=== PATIENT | male | born 1965 | race Caucasian/White ===

== ENCOUNTER 2017-05-22 20:41 | Inpatient (IN) | payer OTHER ==
[~2017-05-22] VITALS: Ht 188 cm; Wt 81.1 kg
--- NOTE | 2017-05-22 20:44 | ED.REPORT ---
HPI-Chest Pain 40 and Over Date of Service May 22, 2017 ED Provider: Frank Garcia MD Patient is a 52 year old male who presents to the ED via EMS complaining of chest pain onset 24 hours ago. Associated symptoms include pain that radiates into his right arm. Prior to arrival patient was evaluated at [facility] and given 324 mg of ASA and 100 milligrams of Fentanyl, which took his chest pain from a 5/10 down to a 2/10. He denies any history of coronary artery disease or prior NM. History is limited due to acuity of situation. Nursing Notes Stated Complaint: STEMI Nursing Notes Reviewed: Yes Allergies: Coded Allergies: erythromycin base (Verified Allergy, Unknown, 05/22/17) General Time Seen by MD: 20:44 Chief Complaint Chest pain Hx Obtained From: Patient Arrived By: Ambulance Sudden in Onset?: Yes Onset Occurred: Yesterday Symptom Duration: Since onset Location: : Substernal Quality: Heaviness, Painful Radiation: : Arm right Severity: Current: Moderate Past Medical History Past Medical History Reports: Asthma Smoking History Current Every Day Smoker Ambulatory Status Independent Review of Systems Constitutional: Denies: Chills, Fever Respiratory: Denies: Non-productive cough, Shortness of breath Cardiovascular: Reports: Chest pain GI: Denies: Abdominal pain Musculoskeletal: Reports: Extremity pain (right arm) Skin: Denies Diaphoresis, Denies Itching, Denies Rash Neurologic: Denies: Numbness, Weakness Complete sys rev & neg: except as marked. Physical Exam Initial Vital Signs Vital Signs (First) Date Time Temp Pulse Resp B/P Pulse Ox O2 Delivery O2 Flow Rate FiO2 05/22/17 20:53 135 25 146/105 94 Room Air Initial VS: Reviewed General/Constitutional: Awake, Alert, No acute distress Respiratory / Chest: Atraumatic, Breath sounds NL, Breath sounds = bilat, No respiratory distress Cardiovascular: Regular rhythm, Heart sounds NL, No gallop, No murmurs, No rubs Heart Rate / Rhythm: Positive: Tachycardia Abdomen: Atraumatic, Soft, Non-tender, No distention, No palpable mass Lower Extremity / Pelvis / MS: Atraumatic, No swelling Skin: Atraumatic, Color NL, No rash, Warm, Dry Neurologic: Oriented X3, Speech NL Psychiatric: Affect NL, Mood NL Head / Eyes: Atraumatic, Normocephalic, PERRL, EOMI Upper Extremity / MS: Atraumatic, Full range of motion good radial pulses bilaterally Interpretation & Diagnostics ECG Interpretation ECG Interpretation: sinus tachycardia, rate [address] elevation in anterolateral lead with mild ST elevation in inferior leads Interpreted by: ED physician X-Ray Chest Interpretation Chest Xray Interpretation: IMPRESSION: No acute cardiopulmonary findings. Dictated by: Nydia Kwong M.D. on 05/22/2017 at 21:06 Approved by: Nydia Kwong M.D. on 05/22/2017 at 21:07 View: Portable, 1 view Interpretation / Wet Read by: Interpret - Radiologist Re-Eval/Medical Decision Med Decision/Clinical Course Patient is a 52 year old male who presents to the ED via EMS complaining of chest pain onset 24 hours ago. Associated symptoms include pain that radiates into his right arm. Prior to arrival patient was evaluated at [facility] and given 324 mg of ASA and 100 milligrams of Fentanyl, which took his chest pain from a 5/10 down to a 2/10. He denies any history of coronary artery disease or prior NM. History is limited due to acuity of situation. Upon arrival IV access was established and patient was placed on continuous cardiac monitoring and pulse oximetry. Prior to arrival patient was discussed with STEMI team and STEMI code was activated laborer bituminous paving prepared. Pre arrival EKG demonstrated significant ST elevation in leads V3-V6, as well as ST elevation in 2,3 and aVF. Repeat EKG upon arrival demonstrated ongoing sinus tachycardia, 131bpm significant ST elevation in the anterolateral leads with mild ST elevation in inferior leads Chest X-ray: IMPRESSION: No acute cardiopulmonary findings. Laboratory studies including CBC, CMP and troponin were ordered upon arrival however were pending at the time of writing this note. Patient was hemodynamically stable upon arrival and his pain was treated with IV morphine. Heparin bolus and infusion was ordered lab was immediately ready to accept the patient and therefore this was not started while in the emergency department. Patient provides no history suggestive that his pain is related to aortic dissection and there is no widened mediastinum on chest x-ray. Presentation is not pleuritic in nature and given EKG findings my suspicion for pulmonary embolism is relatively low. The examination was taken to It Senior Analyst in stable condition. Time of Eval: 21:02 Re-Evaluation/Progress Note: Patient is transported to the laborer bituminous paving Consultation : Consulted With: Finisher Cold Rolling: Requested laborer bituminous paving Counseled Regarding: Diagnosis, Lab results, Need for admission Discharge & Departure Primary Impression: STEMI (ST elevation myocardial infarction) Involved coronary artery: unspecified coronary artery Qualified Code: I21.3 - ST elevation (STEMI) myocardial infarction of unspecified site Additional Impressions: Chest pain Chest pain type: unspecified Qualified Code: R07.9 - Chest pain, unspecified Tachycardia Disposition: ADMITTED TO HOSPITAL Discharge Condition All VS Reviewed: Yes Condition: Stable Crit Care Except Billable Proc Time Spent: 30-74 minutes Services Performed: Patient management by me, Time spent at bedside, Reviewing test results, Reviewing imaging, Discussing patient care, Documentation in record, Time with fam/surrogate Critical Care Notes: Total 45 minutes including pre-arrival preparations, activation of STEMI, discussion with specialists, documentation. Melva Attestation Portions of this note were transcribed by Karishma Fagan. I, Dr. Garcia personally performed the history, physical exam and medical decision-making; I reviewed and confirmed the accuracy of the information in the transcribed note. Signed by: Melva Daniels, 05/22/17 Frank Garcia MD May 22, 2017 20:44 Sharon Fagan May 22, 2017 20:59
[2017-05-22] MEDS ORDERED: Heparin 5,000 Unit/mL Inj IVPUSH ONE (20:45)
[2017-05-22] MEDS ORDERED: Heparin 25K Unit/500mL 0.45 NS 25,000 UNIT in IV Premix 1 EACH IV ONE (20:45)
[2017-05-22] MEDS ORDERED: NitroPRUSSIDE 25,000 mCg/mL 2 mL Inj IV ONE (20:48)
[2017-05-22] MEDS ORDERED: Heparin 1,000 Units/500 mL NS Premix IV ONE (20:48)
[2017-05-22] MEDS ORDERED: Nitroglycerin 50,000 mcg/250 mL D5W Premix IV ONE (20:48)
[2017-05-22] MEDS ORDERED: Heparin 10,000 Unit/1,000 mL NS Premix IV ONE (20:48)
[2017-05-22] MEDS ORDERED: Dextrose 5% 250 ML IV ONE (20:48)
[2017-05-22] MEDS ORDERED: Heparin 1,000 Unit/mL 10 mL Inj ONE (20:48)
[2017-05-22 20:53] VITALS: BP 146/105; PULSE 135; RESP 25; O2SAT 94
[2017-05-22 21:08] VITALS: BP 146/105; PULSE 135; RESP 25; O2SAT 94
--- NOTE | 2017-05-22 21:08 | DRSVH ---
PROCEDURE: X-RAY CHEST ONE VIEW, PORTABLE ([id number]) INDICATIONS: chest pain TECHNIQUE: One view of the chest was acquired. COMPARISON: None. FINDINGS: Surgical changes and devices: None. Lungs and pleura: No pleural effusions or pneumothorax. Lungs are clear. Mediastinum: Mediastinal contours appear normal. Heart size is normal. Bones and chest wall: No suspicious bony lesions. Overlying soft tissues appear unremarkable. IMPRESSION: No acute cardiopulmonary findings. Dictated by: Nydia Kwong M.D. on 05/22/2017 at 21:06 Approved by: Nydia Kwong M.D. on 05/22/2017 at 21:07
[2017-05-22] MEDS ORDERED: fentaNYL-PF 50 mCg/mL 2 mL Inj ONE (21:17)
[2017-05-22] MEDS ORDERED: MeTOProlol 1 mg/mL 5 mL Inj ONE ×2 (21:27→21:37)
--- NOTE | 2017-05-22 22:32 | CONS ---
[address] [address] CONSULTATION REPORT PATIENT: PAULINO SPARKS I : 1965 MR#: [id number] ADMIT: 05/22/2017 JOB ID: [id number] DATE OF SERVICE: 05/22/2017 CHIEF COMPLAINT: Chest pain. HISTORY: This patient was brought from [facility]. He has been having chest discomfort since Monday afternoon. He dismissed as musculoskeletal pain. It did not get any better. Went to [facility]. An EKG done there showed anterior ST segment elevation. The patient was transferred to [facility]. By the time he got to [facility], his pain had greatly subsided. The patient denies any associated nausea, vomiting. No associated autonomic symptoms. He describes it as a dull discomfort in his anterior chest. He stated that it felt like a muscle ache. PAST MEDICAL HISTORY: Asthma and hay fever. ALLERGIES: ERYTHROMYCIN. MEDICATIONS AT HOME: Inhalers for his asthma. PERSONAL HISTORY: He is a smoker. Denies any alcohol or drug abuse. FAMILY HISTORY: His father in his 30s from an [facility]. His siblings are all healthy and alive. REVIEW OF SYSTEMS: Comprehensive review of systems was done. Pertinent negatives are no strokes, no GI or bleeding. No upcoming surgeries. PHYSICAL EXAMINATION: Mildly distressed middle-aged man. Neck is supple. No JVD. Chest: Heart S1-S2 regular and tachycardic. No gallops appreciated. Abdomen is soft. Extremities: Negative for CCE, 2+ distal pulses. HOUSEKEEPING/LAUNDRY SUPERVISOR: Alert and oriented. EKG consistent with an anterior infarct with Q-waves throughout the precordium and persistent ST-segment elevation. ASSESSMENT AND PLAN: In view of the patient's ongoing chest discomfort and persistent ST-segment elevation, we decided to take him to the poultry farm laborer. Angiographic findings are reported elsewhere. Briefly, he does not have any significant fixed epicardial coronary artery disease. 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 I would withhold beta-blockers for now. I am going to start him on nitroglycerin drip.
[2017-05-22] MEDS ORDERED: 0.9% Sodium Chloride 1,000 ML IV SCH (22:34)
[2017-05-22] MEDS ORDERED: Polyethylene Glycol (PEG) 17 Gm Powder PO PRN (22:35)
[2017-05-22] MEDS ORDERED: Nitroglycerin 50 mg/250 mL D5W 50,000 MCG in IV Premix 1 EACH IV SCH (22:35)
[2017-05-22] MEDS ORDERED: Alum-Mag Hydrox-Simeth 30 mL Suspension PO PRN (22:35)
[2017-05-22] MEDS ORDERED: Ondansetron 2 mg/mL 2 mL Inj IVPUSH PRN ×2 (22:35→23:00)
[2017-05-22 22:45] VITALS: BP 115/78; PULSE 105; RESP 21; O2SAT 90
[2017-05-22] MEDS ORDERED: 0.9% Sodium Chloride 250 ML BOLUS IV PRN (23:00)
[2017-05-22] MEDS ORDERED: Atropine 1 mg/10 mL (Code) Syringe IVPUSH PRN (23:00)
[2017-05-22] MEDS ORDERED: Sodium Chloride LOK Flush 10 mL Syringe IVFLUSH PRN (23:00)
[2017-05-22] MEDS ORDERED: 0.9% Sodium Chloride 400 ML (4 HRS) IV ONE (23:00)
[2017-05-22] MEDS ORDERED: Albuterol 2.5 mg/3 mL Inhalation Solution NEB PRN (23:45)
--- NOTE | 2017-05-22 23:53 | PCM.HPMED ---
Subjective Date of Service May 22, 2017 Primary Provider: Admitting Physician: Abel Monaco MD Primary Care Physician: Brandy Attending Physician: Abel Monaco MD Chief Complaint: Chest pain History of Present Illness: Romeo Timmons is a 52-year-old man with past medical history significant for 35- pack-year smoking history and a father with first [place] at age 30 who presents with 24 hours of chest pain. Patient states pain started Monday after reaching for a box on a high shelf. The pain was diffuse throughout his body including his chest bilateral arms and legs and he described the pain as sharp and constant. Pain slightly improved with aspirin and ibuprofen. No associated nausea, vomiting, shortness of breath, diaphoresis, lightheadedness, headache, vision changes, or palpitations. Pain continued throughout the night and intensified today more locally in his left lower chest wall. He states it feels like he throughout a few of his ribs and continues throughout her conversation to attribute his pain to a musculoskeletal cause. Due to the intensified pain patient presented to [facility] where an EKG revealed an anterior ST segment elevation. Patient was subsequently transferred to [facility]. During his transfer he received aspirin in the 100 mg of fentanyl which significantly improved his pain that he initially rated as a 10 out of 10 to a 4 out of 10. No prior episodes of chest pain or similar symptoms. No history of heart disease or prior echocardiogram. Of note the patient drinks approximately 2 L of coffee a day. Initial vitals on presentation to [facility] ED were pulse 135, respiratory rate 25, blood pressure 146/105, saturating 94% on room air. EKG at our facility redemonstrated an anterior infarct with Q waves throughout the precordium and persistent ST segment elevation. Patient was taken to the confectionery laboratory manager by Dr. Monaco which revealed no significant fixed epicardial coronary artery disease but did show myocardial bridge in the LAD. Dr. Monaco's suspicion is that he had a significant spasm that due to the myocardial bridge caused his large anterior myocardial infarction. Review of Systems: Comprehensive review of systems was conducted with the patient and found to be negative except as noted above in HPI. Allergies Coded Allergies: erythromycin base (Verified Allergy, Unknown, 05/22/17) Home Medications Rescue inhaler - likely pro-air PMH Asthma Tobacco use disorder Surgical History Surgery for hydrocephalus as an infant Family History Father with first WA at age 30 now also with hypertension. Mother is healthy. Sister is healthy. 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 External ears without defect. Pupils equal, round, and reactive to light and accommodation. Anicteric sclerae, moist conjunctivae, and no lid lag. Moist oral mucosa. Neck: Supple with full range of motion. No jugular venous distension. Well- healed scar on right lateral neck from hydrocephalus surgery. No lymphadenopathy or thyromegaly. Cardiovascular: Tachycardic with regular rhythm no murmurs, rubs, or gallops appreciated Pulmonary: Clear to auscultation bilaterally with no crackles, wheezes, or rhonchi. Normal respiratory effort with no use of accessory muscles. Abdomen: Bowel tones present. Soft, nontender, nondistended. No hepatosplenomegaly or masses appreciated. Extremities: No clubbing, cyanosis, edema, or lymphadenopathy appreciated. Bandage present over the right femoral region from cardiac catheterization. Without surrounding erythema or hematoma. Skin: Normal temperature, turgor, and texture; no rash, ulcers, or subcutaneous nodules appreciated. Neurological: Cranial nerves grossly intact. Normal muscle strength, tone, and bulk. Reflexes, coordination, and sensory function within normal limits. No known gait impairment. Psychiatric: Normal mood and affect. Alert and oriented to person, place, and time. Lab and Diagnostics Labs Labs including CBC, CMP, PT/INR, PTT, TSH, and lipid profile ordered and pending. X-Rays, CTs and MRIs X-RAY CHEST ONE VIEW, PORTABLE ([id number]) IMPRESSION: No acute cardiopulmonary findings. Dictated by: Nydia Kwong M.D. on 05/22/2017 at 21:06 Approved by: Nydia Kwong M.D. on 05/22/2017 at 21:07 12-lead ECG Anterior infarct with Q waves throughout the precordium and persistent ST segment elevation Assessment & Plan Romoe Timmons is a 52-year-old man with past medical history significant for 35- pack-year smoking history and a father with first [place] at age 30 who presents with 24 hours of chest pain. STEMI thought to be secondary to spasm and myocardial bridging of the LAD, present on admission, active. Dr. Monaco took patient to confectionery laboratory manager no stents placed although per video game repair technician they did balloon multiple times. Per Dr. Monaco's evaluation STEMI is likely secondary to myocardial bridging of the LAD in the setting of a significant spasm. - EKG consistent with an anterior infarct with Q-waves throughout the precordium and persistent ST-segment elevation. - Beta blockers to be held per cardiology. - Nitroglycerin drip at 20 mcgs per cardiology. - Lipid panel pending. - Supplemental oxygen as needed. - Aspirin 81 mg initially received and continued daily. - Clopidogrel 600 mg loading dose followed by 75 mg daily. - Lisinopril 5 mg daily.alb - Atorvastatin 40 mg daily. - Consider echocardiogram. No prior. - Cardiology following. Appreciate time and recommendations. Tobacco use disorder, present on admission, chronic. - Counseled on smoking cessation. - Declined nicotine patch. Asthma, present on admission, chronic. - Patient uses rescue inhaler once a week at most. - Albuterol ordered when necessary. PRN Medications - Acetaminophen as needed for mild pain/fever/headache - Bowel regimen as needed - Antiemetic as needed Patient is admitted under inpatient status with expected length of stay greater than 2 midnights due to severity of presenting symptoms, risk of adverse event, and complexity of treatment plan. Pain Evaluation: Adequate Pain Control GI Prophylaxis: Not indicated VTE Prophylaxis: Sub-Q Heparin (Unfractionated) VTE Mechanical Devices: Intermittant Pneumatic CD Resuscitation Status: CPR: Attempt Resuscitation Time spent 50 minutes critical care time spend. Attending Statement The patient was seen and examined together with Dr. Myles on 05/22 and I agree with the history, exam and plan as outlined in the note above. DEBORAH MYLES DO May 22, 2017 22:14 Paresh Us MD May 23, 2017 01:30
[2017-05-22 23:55] LABS: Magnesium 1.4 mg/dL (1.6-2.6)
[2017-05-23] VITALS (7 sets, daily range): BP systolic 97–120; BP diastolic 55–85; PULSE 98–124; RESP 18–26; O2SAT 94–96
[2017-05-23 00:05] LABS: TROPONIN T 2.7 ug/L (0.0-0.011)
[2017-05-23 00:09] LABS: BASOPHILS % (AUTO) 0.1 % (0-3); EOSINOPHILS % (AUTO) 0.1 % (0-5); MONOCYTES % (AUTO) 13.3 % (4-12); Mean Corpuscular Hemoglobin 32.4 pg (27.0-35.0); Mean Corpuscular Volume 94.8 fL (81-100); NEUTROPHILS % (AUTO) 75.4 % (40-74); Platelet Count 253 bil/L (150-400)
[2017-05-23] MEDS ORDERED: Heparin 5,000 Unit/mL Inj SUBQ SCH ×2 (00:30→08:30)
[2017-05-23 04:10] LABS: BASOPHILS % (AUTO) 0.1 % (0-3); EOSINOPHILS % (AUTO) 0 % (0-5); MONOCYTES % (AUTO) 13.4 % (4-12); Mean Corpuscular Hemoglobin 32.6 pg (27.0-35.0); Mean Corpuscular Volume 94.3 fL (81-100); Platelet Count 230 bil/L (150-400)
--- NOTE | 2017-05-23 06:30 | NUR ---
TRANSFER FROM RESOURCE MANAGEMENT PLANNER RECEIVED PT IN BED ACCOMPANIED BY 2 RESOURCE MANAGEMENT PLANNER STAFF TO ROOM 2015, AWAKE, ALERT AND ORIENTED, RIGHT GROIN SITE DRESSING CLEAN, DRY, AND INTACT, NO BLEEDING, NO HEMATOMA, SOFT, NO PAIN, 3+ PULSES PRESENT, PT INSTRUCTED ON MOBILITY RESTRICTIONS, HAVING DIFFICULT TIME REMEMBERING AND NEEDS CONSTANT REMINDERS, O2 ON 3L nc TO KEEP SATS ABOVE 92%, COMPLAINTS OF"RIB" DISCOMFORT, STATES HE REACHED FOR A BOX THE WRONG WAY HAD ACHE EVER SENSE, STATES 2-3/10 DULL ACHE STATES CAN NOT TAKE A DEEP BREATH. DENIES CHEST PAIN. IV INFUSING NS 100MLS/HOUR AND NITRO 20 MCG/MIN. + PULSES
--- NOTE | 2017-05-23 06:43 | NUR ---
POST CATH RECOVERY SEE FLOW RECORD PAPER CHART
[2017-05-23] MEDS ORDERED: Magnesium Sulf 4 Gm/100 mL H2O 4 GM in IV Premix 1 EACH IV ONE (07:35)
--- NOTE | 2017-05-23 08:20 | PCM.PNMED ---
Subjective Date of Service May 23, 2017 Subjective Overnight Blood pressures and HR have trended down though he still remains tachycardic. Remains on Nitro drip. He states he still has chest pain which he decribes as a rib pain which he is used to. No cardiac pain, mild SOB which is improved with Nebs. Exam Vital Signs Vital Sign - Last Date Time Temp Pulse Resp B/P Pulse Ox O2 Delivery O2 Flow Rate FiO2 05/23/17 05:40 37.6 112 21 97/64 94 Nasal Cannula 4.00 Intake and Output 05/22/17 05/22/17 05/23/17 Cumulative From/Thru 15:00 23:00 07:00 05/22/17 20:53 - 05/23/17 05:40 Intake Total 1040 ml 1040 ml Output Total 950 ml 950 ml Balance 90 ml 90 ml Intake Oral 600 ml 600 ml IV Total 440 ml 440 ml Output Urine Total 950 ml 950 ml # Bowel Movements 0 0 Exam General: Awake and alert laying in bed in no acute distress, well-developed, well-nourished, appropriately interactive HEENT: Normocephalic, atraumatic. External ears without defect. Pupils equal, round, and reactive to light and accommodation. Anicteric sclerae, moist oral mucosa. Neck: Supple with full range of motion. No jugular venous distension. Scar on neck from prior surgery. Cardiovascular: Tachycardic rate, regular rhythm no murmurs appreciated. Pulmonary: Clear to auscultation bilaterally with no crackles, wheezes, or rhonchi. Normal respiratory effort with no use of accessory muscles. Abdomen: Soft, nontender, nondistended. . Extremities: No clubbing, cyanosis, edema. RIght femoral bandage intact, no erythema or tenderne to palpation. Skin: Warm to palpation, normal turgor, diaphoretic Neurological: Cranial nerves grossly intact. Psychiatric: Normal mood and affect. Alert and oriented to person, place, and time. IVs and Medications Medications Reviewed: Medications were reviewed in detail Lab and Diagnostics Result Diagram: 05/23/1730905/23/17309 X-Rays, CTs and MRIs . X-RAY CHEST ONE VIEW, PORTABLE IMPRESSION: No acute cardiopulmonary findings. Dictated by: Nydia Kwong M.D. on 05/22/2017 12-lead ECG Anterior infarct with Q waves throughout the precordium and persistent ST segment elevation Assessment & Plan Romeo Timmons is a 52-year-old man with past medical history significant for 35- pack-year smoking history and a father with first [place] at age 30 who presents with 24 hours of chest pain. Hospital day 2. STEMI thought to be secondary to spasm and myocardial bridging of the LAD, present on admission, active. Dr. Monaco took patient to bundle tier and labeler no stents placed although per horticultural technical officer they did balloon multiple times. Per Dr. Monaco's evaluation STEMI is likely secondary to myocardial bridging of the LAD in the setting of a significant spasm. - EKG consistent with an anterior infarct with Q-waves throughout the precordium and persistent ST-segment elevation. - Beta blockers to be held per cardiology. - Nitroglycerin drip at 20 mcgs per cardiology. - Lipid panel normal - Supplemental oxygen as needed. - Continue Aspirin QD, Clopidogril 75mg QD, Lisinopril 5mg QD, Atorvastatin 40 mg QD - ECHO pending - Cardiology following. Appreciate time and recommendations. Leukocytosis, present on admission, improving -Most likely secondary to stress reaction -Trending down Tobacco use disorder, present on admission, chronic. - Counseled on smoking cessation. - Declined nicotine patch. Asthma, present on admission, chronic. - Patient uses rescue inhaler once a week at most. - Albuterol ordered when necessary. Elevated Liver Function Test, present on admission -Denies EtOH use, Lipid panel normal, Possibly lab error -AST 120, ALT 37 -Continue to monitor Hyperglycemia, present on admission. Ongoing -A1c pending PRN Medications - Acetaminophen as needed for mild pain/fever/headache - Bowel regimen as needed - Antiemetic as needed Patient is admitted under inpatient status with expected length of stay greater than 2 midnights due to severity of presenting symptoms, risk of adverse event, and complexity of treatment plan. GI Prophylaxis: Not indicated VTE Prophylaxis: Sub-Q Heparin (Unfractionated) VTE Mechanical Devices: Intermittant Pneumatic CD Resuscitation Status: CPR: Attempt Resuscitation Time spent 35 minutes Attending Statement Patient has been seen and examined by myself with medical accounts receivable specialist and agree with above history, physical, assessment and plan. ABRAHAM ALEX DO May 23, 2017 07:44 Archana Calderon MD May 23, 2017 17:10
[2017-05-23 08:45] LABS: Magnesium 1.5 mg/dL (1.6-2.6)
[2017-05-23 09:13] LABS: TROPONIN T 1.97 ug/L (0.0-0.011)
--- NOTE | 2017-05-23 09:30 | NUR ---
Nitro gtt/CP/ R groin: Nitro gtt infusing at 20mcg/hr and medication currently not on eMAR. Spoke to Dr Merchant (seed corn manager production service center appraiser) reported that patient was started on Nitro gtt last night and continues to report 2-3/10 CP and has increased CP with deep inspiration. Verbal order to continue Nitro gtt at 20mcg/hr. R groin site is C/D/I, soft, non-tender to touch, pedal pulses equal and strong. Frequent rounding in place.
[2017-05-23] MEDS ORDERED: ASPI325T32 PO (10:52)
[2017-05-23] MEDS ORDERED: IBUP200C PO (10:52)
[2017-05-23] MEDS ORDERED: ALBU18HF INH (10:52)
[2017-05-23] MEDS ORDERED: PHEN1CAP PO (10:53)
--- NOTE | 2017-05-23 10:54 | DRSVH ---
[facility] [address] [place] [address] Echocardiogram Report Name: PAULINO SPARKS IStudy Date : 05/23/2017 Height: 74 in Hospital Exam Location: [facility] Weight: 186 lb Gender: Other BSA: 2.1 m2 : 1965 Age: 52 yrs BP: 97/6 4 mmHg Reason For Study: STEMI Ordering Physician: HOSPITALIST [facility] Performed By: Shante Freeman Referring Physician: Ledy Lewis Interpretation Summary 1) Upper normal left ventricular size with mild concentric hypertrophy and moderately reduced systolic function (EF 30-35%). 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 3) Normal right ventricular size and function. 4) No significant valvular abnormalities. 5) No prior Echo available for comparison. Procedure: A two-dimensional transthoracic echocardiogram with color flow and Doppler was performed. The study quality was technically adequate. Images from the parasternal window were difficult to obtain and are suboptimal in quality. There is no prior echocardiogram noted for this patient. The patient was in sinus tachycardia with heart rates between 97 and 128 bpm during the exam. Left Ventricle: There is mild concentric left ventricular hypertrophy. Left ventricular size is at the upper limits of normal. Spontaneous contrast is noted consistent with low flow state. There is no thrombus. Left ventricular systolic function is moderately reduced. The ejection fraction is estimated to be 30-35%. 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 Assessment of diastolic parameters indicates normal left ventricular diastolic function and normal filling pressures. Right Ventricle: The right ventricle is normal size. Akinetic RV apex. Atria: The left atrial size is normal. Right atrial size is normal. There is no Doppler evidence for an interatrial shunt. Mitral Valve: The mitral valve is normal. There is no mitral regurgitation noted. Aortic Valve: The aortic valve is normal in structure and function. There is no aortic valve stenosis. No aortic regurgitation is present. Tricuspid Valve: The tricuspid valve is normal. There is a trace or physiologic amount of tricuspid regurgitation. Pulmonary artery pressures cannot be estimated because of the lack of a measurable TR jet velocity. Pulmonic Valve: The pulmonic valve leaflets are thin and pliable; valve motion is normal. There is a trace or physiologic amount of pulmonic regurgitation. Great Vessels: The aortic root is normal size. The ascending aorta could not be visualized. The aortic arch could not be visualized. The pulmonary artery is not well visualized, but is probably normal size. The IVC is dilated (diameter is greater than 2.1 cm) and it collapses less than 50% with a sniff. This suggests a high right atrial pressure of 15 mm Hg. Pericardium/ Pleura There is no pericardial effusion. There is no pleural effusion. MMode/2D Measurements & Calculations LVIDd: 5.8 cm RA long axis LVOT diam LVIDs: 3.9 cm LA A2 area: 15.9 cm FS: 32.5 % LA A4 area: 15.7 cm RA area AoV Opening EPSS: 0.50 cm LA length (vol): 4.2 cm IVSd: 1.2 cm LA vol: 50.4 ml : 13.5 cm Ao root diam LVPWd: 1.1 cm LA vol index RA vol: 36.7 ml: 3.5 cm RA : 17.4 mm2 IVC diam: 2.3 cm LV healy. diameter/BSA LV sys. diameter/BSA RVD1 (basal) RVD2 (mid) (cm/m^2): 2.8 (cm/m^2): 1.9 : 2.7 cm Doppler Measurements & Calculations Ao V2 max MV E max wesley MV E/A: 1.1 PA V2 max : 111.6 cm/sec : 75.3 cm/sec Med Peak E' Wesley : 83.4 cm/sec Ao max PG MV A max wesley PA mean PG : 5.0 mmHg : 70.5 cm/sec E/E' med: 12.8 Ao mean PG MV P1/2t: 34.9 msec Lat Peak E' Wesley PA Accel Time : 0.11 sec LVOT Max Wesley E/E' lat: 12.1 : 94.2 cm/sec E/e' average ERVIN(I,D): 3.8 cm sev ratio MV dec time MV P1/2t max wesley Ao V2 mean LV V1 max PG : 0.12 sec : 85.3 cm/sec MVA(P1/2t): 6.3 cm2 Ao V2 VTI: 19.1 cm LV V1 VTI ERVIN(V,D): 3.5 cm2 : 17.7 cm PA V2 mean ERVIN indexed to BSA : 62.2 cm/sec (cm^2/m^2): 1.8 Reading Physician:10:53 AM
--- NOTE | 2017-05-23 11:03 | DI95 ---
[address] [address] INTERVENTIONAL CARDIAC CATHETERIZATION PATIENT: PAULINO SPARKS I : 1965 MR#: [id number] ADMIT: 05/22/2017 JOB ID: [id number] DATE: PROCEDURE: 1. Selective right and left coronary angiography. 2. Left heart catheterization. 3. Left ventriculography. 4. Plain old balloon angioplasty of the left anterior descending. INDICATION: Acute anterior FL. PROCEDURAL DETAILS: This patient had the procedure performed via a right femoral approach using a [id number] system. Further details are enumerated in the procedure log to which the reader and the coders are referred. ANGIOGRAPHIC FINDINGS: 1. Right coronary artery is a dominant vessel. It is free of any disease. 2. Left main normal with no significant disease. 3. Circumflex nondominant and free of any significant disease. 4. LAD is proximally a large caliber vessel. It is a transapical vessel. Totally occluded in its mid segment at the takeoff of a small septal branch. 5. Left heart catheterization revealed a severely depressed ejection fraction. A large area of apical, anterior, anterolateral hypokinesis. No significant MR. No gradient upon pullback. LVEDP was elevated at 24 mmHg. INTERVENTIONAL REPORT: We then proceeded ahead with an intervention on the totally occluded LAD. A Runthrough wire was readily able to cross this occlusion. We then ballooned it with a 2.0 balloon. 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 Following that, there was slow flow. We then did some further ballooning with a 2.0 balloon distally and a 2.5 balloon proximally. Following that, we were able to establish AMOL-2 flow into the distal LAD. No obvious culprit lesion was seen in the distal LAD. Also mentioned that the distal LAD tapers down into a very small caliber vessel. My impression at this point was that the infarct the patient suffered could be a result of severe spasm rather than fixed epicardial coronary artery disease. His coronaries have no significant disease in other segments, and spasm is a possibility. At this point, following balloon angioplasty, the procedure was terminated partly because the LAD was an extremely small caliber vessel distally, partly because I felt it was a result of spasm and also because the patient had a large wall motion abnormality on his left ventriculogram and given his delayed presentation I was not sure we could salvage much myocardium. At this point, the patient has been started on a nitroglycerin drip. It will be continued through the night. I would recommend withholding the patient's beta-blockers and starting him on nitrates. He might be an appropriate candidate for long-term treatment with hydralazine and nitrates.
--- NOTE | 2017-05-23 12:10 | DRSVH ---
PROCEDURE: X-RAY CHEST ONE VIEW, PORTABLE ([id number]) INDICATIONS: SHORTNESS OF BREATH / EKG changes TECHNIQUE: One view of the chest was acquired. COMPARISON: [facility], CR, XR CHEST 1VW (PORTABLE), 05/22/2017, 20:57. FINDINGS: Surgical changes and devices: None. Lungs and pleura: Trace opacity is present in the left base. Mediastinum: Mediastinal contours appear normal. Heart size is normal. Bones and chest wall: No suspicious bony lesions. Overlying soft tissues appear unremarkable. IMPRESSION: Trace left basilar opacity, possibly atelectasis. Dictated by: Carmelina Snyder M.D. on 05/23/2017 at 12:02 Approved by: Carmelina Snyder M.D. on 05/23/2017 at 12:08
[2017-05-23] MEDS: Heparin 25K Unit/500mL 0.45 NS 25,000 UNIT in IV Premix 1 EACH IV SCH (12:29)
--- NOTE | 2017-05-23 13:00 | NUR ---
Increases CP/O2 Saturation/SOB: c/o 4/10 CP, increased CP, SOB and decreased SpO2. Dr Merchant, Dr Dixon and Dr Calderon were all notified. Ordered Stat EKG, Chest x-ray, and Labs. Patient continues of Nitro gtt at 20mcg/min and Heparin gtt was started per cardiac protocol. VSS. Isosorbide 30mg PO ordered and scheduled Hydralazine 25mg PO held per Dr Merchant. Continued close telemetry and vial monitoring. Frequent rounding in place.
--- NOTE | 2017-05-23 13:04 | PCM.PNCARD ---
Subjective Date of service May 23, 2017 Chief Complaint Chest pain History of Present Illness 52 yo M with no known medical history admitted with anterior STEMI. Patient underwent emergent coronary angiography that revealed occluded LAD but not a typical thrombotic event. The occlusion of the LAD was felt to be spasm related and no stents were placed. AMOL 1 flow present in the LAD at the end of the case. Subjective: Patient feels okay. He continues to have pleuritic chest pain that is worse with palpation. Exam Vital Signs Vital Sign - Last Date Time Temp Pulse Resp B/P Pulse Ox O2 Delivery O2 Flow Rate FiO2 05/23/17 12:30 37.3 108 24 111/78 95 Nasal Cannula 3.00 Intake and Output 05/22/17 05/22/17 05/23/17 Cumulative From/Thru 15:00 23:00 07:00 05/22/17 20:53 - 05/23/17 05:40 Intake Total 1040 ml 1040 ml Output Total 950 ml 950 ml Balance 90 ml 90 ml Intake Oral 600 ml 600 ml IV Total 440 ml 440 ml Output Urine Total 950 ml 950 ml # Bowel Movements 0 0 General appearance: No apparent distress, well-nourished, pleasant, cooperative HEET: Normocephalic atraumatic, no scleral icterus, tongue midline, mucous membranes moist Neck: supple Cardiovascular: RRR, normal S1 and normal S2, no murmurs/ rubs/gallops, PMI nondisplaced, no JVD, no peripheral edema Respiratory: Good aeration, clear to auscultation bilaterally Abdomen: Soft, nontender, nondistended, + bowel sounds Neuro: Alert, no facial droop, tongue midline, no gross motor deficits Lab and Diagnostics Result Diagram: 05/23/17 0310 05/23/17 0745 X-Rays, CTs and MRIs Echo 05/23/2017: 1) Upper normal left ventricular size with mild concentric hypertrophy and moderately reduced systolic function (EF 30-35%). 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 3) Normal right ventricular size and function. 4) No significant valvular abnormalities. 5) No prior Echo available for comparison. Assessment & Plan Assessment 52 yo M with no known medical history admitted with anterior STEMI. Patient underwent emergent coronary angiography that revealed occluded LAD but not a typical thrombotic event. The occlusion of the LAD was felt to be spasm related and no stents were placed. AMOL 1 flow present in the LAD at the end of the case. # Anterior [place]: Patient came in with acute anterior STEMI but emergent revascularization attempt was not successful. The cath pictures do not support atherosclerotic disease leading to [place]. Etiology is unclear to me at this time but it could be spasm versus dissection versus emboli. Unfortunately, patient also presented about 24 hours after having chest pain and poor flow in the distal LAD after revascularization attempt could be result of unviable myocardium. LVEF 30-35% with apical one third of the myocardium akinetic. Plan : - Autoimmune evaluation per primary team - Continue aspirin 81mg daily - Continue heparin gtt and transition to PO warfarin for 3 months of anticoagulation to reduce risk of systemic thromboembolism due to akinetic apex - Continue atorvastatin 40mg qhs to reduce possibility of endothelial dysfunction - Switch from IV nitrates to PO nitrates and uptitrate to maximal dose his BP allows - Hold off hydralazine as SBP in the 90s - Consider starting lisinopril 2.5mg qhs - Consider start carvedilol 1/2 of 3.125mg bid in 1-2 days - Bed rest and stay in ICU for the next 24 hours Problems: Pain Evaluation: Adequate Pain Control GI Prophylaxis: Not indicated VTE Prophylaxis: Sub-Q Heparin (Unfractionated) VTE Mechanical Devices: Intermittant Pneumatic CD Resuscitation Status: CPR: Attempt Resuscitation Time spent I spent 60 minutes of critical care time reviewed the patient's chart, images, and speaking with the patient and educated about his condition and answering his questions. Lakesha Merchant MD May 23, 2017 13:04
[2017-05-23] MEDS: HYDROcodone-APAP 5-325 mg Tablet PO PRN ×2 (13:36→18:18)
[2017-05-23] MEDS ORDERED: Isosorbide Mononitrate 30 mg ER24 Tablet PO ONE (13:40)
[2017-05-23 18:10] LABS: INR 1.05 ratio
[2017-05-23] MEDS: Heparin 5,000 Unit/mL Inj IVPUSH PRN (18:25)
--- NOTE | 2017-05-23 18:35 | NUR ---
Heparin: PTT 35.1. Heparin gtt infusing at 1,000u/hr per cardiac protocol increased to 1,200u/hr and 5,000u bolus was administered. IV's intact, patent and asymptomatic. No s/s of bleeding. Will continue to monitor for signs of bleeding.
--- NOTE | 2017-05-23 19:31 | PCM.PHAPRO ---
Progress Date of Service: May 23, 2017 Chest pain Dx: reduce risk of systemic thromboembolism INR goal 2-3 INR 1.05 (below goal) give warfarin 5mg tonight per Dr Crowder draw INR AM labs on 05/24 per pharmacy Anand Cm PharmD Anand Cm May 23, 2017 19:31
[2017-05-24] VITALS (9 sets, daily range): BP systolic 98–112; BP diastolic 49–75; PULSE 100–115; RESP 17–24; O2SAT 94–95
[2017-05-24] MEDS: Heparin 5,000 Unit/mL Inj IVPUSH PRN ×4 (00:34→18:31)
[2017-05-24 03:55] LABS: BASOPHILS % (AUTO) 0.1 % (0-3); EOSINOPHILS % (AUTO) 0.6 % (0-5); MONOCYTES % (AUTO) 12.4 % (4-12); Mean Corpuscular Hemoglobin 32.3 pg (27.0-35.0); Mean Corpuscular Volume 93.5 fL (81-100); NEUTROPHILS % (AUTO) 70.8 % (40-74); Platelet Count 222 bil/L (150-400)
[2017-05-24 04:19] LABS: INR 0.99 ratio
[2017-05-24 04:25] LABS: ERYTHROCYTE SEDIMENTATION RATE 43 mm/hr (0-30)
[2017-05-24 04:49] LABS: Magnesium 1.8 mg/dL (1.6-2.6)
[2017-05-24 05:09] LABS: TROPONIN T 1.36 ug/L (0.0-0.011)
[2017-05-24] MEDS: HYDROcodone-APAP 5-325 mg Tablet PO PRN ×2 (08:36→13:05)
[2017-05-24] MEDS: Heparin 25K Unit/500mL 0.45 NS 25,000 UNIT in IV Premix 1 EACH IV SCH ×2 (08:51→23:51)
--- NOTE | 2017-05-24 08:51 | NUR ---
Social Work: Initial Assessment D: Per EMR review, pt is a 52 year old male admitted for STEMI. Pt is [employer] insurance and pt states that he has no supplement, LTC or VA benefits. Pt does not have a PCP. NOK is Laura Shin, sister, . Advanced directives not completed- information provided. Readmit score is low, 10/02. Pt discussed with bedside RN on 05/23/17. Pt received news from cardiology that his EF was low and pt was having a hard time envisioning his future with heart failure. STAFFING ASSOCIATE met with the patient at bedside. Sw role explained, contact information and d/c planning checklist provided. Pt in positive spirits considering his new diagnosis and verbally expresses that "I have too much time to think in here." The patient states that he lives with his sister and helps to pay bills and the mortgage. The patient works doing equipment repair and cleaning and is very unsure about how his new diagnosis will impact his ability to work. He is very receptive to information from providers about his diagnosis and ultimately from STAFFING ASSOCIATE about possible resources for insurance and assistance if he is not able to work. Pt remains hopeful for his future but just "want to have answers." A: Pt who is I with all ADLs at baseline and uses no DME P: Evolving; patient remains in CCU. STAFFING ASSOCIATE will continue to follow to assess for discharge needs. JOSE Alexander Addendum: 05/24/17 at 0859 by JORGE GUEVARA Amended: Links added.
--- NOTE | 2017-05-24 11:01 | PCM.PHAPRO ---
Progress Chest pain WARFARIN day 2 Pulsatile systolic mechanical occlusions of LAD w/ thrombotic risk o/ INR at baseline a/p Ten mg today and follow. Date May 24-May 25-Apr 25-May 27-May 28-May INR 1.05 .99 Warf Dose 5mg 10mg Anibal Evans S Pharm D May 24, 2017 11:01
--- NOTE | 2017-05-24 12:15 | NUR ---
BP/Nitro/O2/Heparin: BP 98/49, HR 114 @ 0830. Isosorbide 30mg PO was given and Nitro gtt was turned off as ordered. Lisinopril 5mg PO was held due to hypotension, BP dropped to 86/54 @ 0900. Dr Merchant aware, Lisinopril was held and changed dose from 5mg to 2.5mg to be administered tonight. On initial assessment patient was able to maintain SpO2 mid 90's on RA and at about 3966-1553 SpO2 began to drop to high 80's. Patient placed on 2L NC to keep SpO2 above 92%, decreased lung sounds in the bases and crackles on auscultation. Dr Merchant was notified and ordered Lisinopril 20mg PO. 1200 PTT = 35.4, Heparin increased from 1300 to 1500u/hr and 5,000u bolus was administered. Ordered Heparin PTT draw in 6 hours. Tele: ST 100-[address] elevation and PVS. VSS. SpO2 mid 90's on 2L NC. Frequent rounding in place. Addendum: 05/24/17 at 1740 by LATA ZAZUETA RN Correction: Order for Lasix 20mg PO was rec'd not Lisinopril for decreased lung sounds and crackles.
[2017-05-24] MEDS ORDERED: Potassium Chloride 20 mEq SR Tablet PO ONE (12:50)
--- NOTE | 2017-05-24 14:01 | PCM.PNCARD ---
Subjective Date of service May 24, 2017 Chief Complaint Chest pain History of Present Illness 52 yo M with no known medical history admitted with anterior STEMI. Patient underwent emergent coronary angiography that revealed occluded LAD but not a typical thrombotic event. The occlusion of the LAD was felt to be spasm related and no stents were placed. AMOL 1 flow present in the LAD at the end of the case. Subjective: Patient's chest pain is getting better. He remains in bed rest. He is in sinus tach and it worsens with minimal movement. He also gets dyspnea and worsening of chest pain with minimal movement per RN. Exam Vital Signs Vital Sign - Last Date Time Temp Pulse Resp B/P Pulse Ox O2 Delivery O2 Flow Rate FiO2 05/24/17 12:09 37.1 112 24 104/64 95 Nasal Cannula 2.00 Intake and Output 05/23/17 05/23/17 05/24/17 Cumulative From/Thru 15:00 23:00 07:00 05/22/17 20:53 - 05/24/17 06:11 Intake Total 1386 ml 1442 ml 3868 ml Output Total 3275 ml 2050 ml 6275 ml Balance -1889 ml -608 ml -2407 ml Intake Oral 1040 ml 1080 ml 2720 ml IV Total 346 ml 362 ml 1148 ml Output Urine Total 3275 ml 2050 ml 6275 ml # Bowel Movements 0 0 0 General appearance: No apparent distress, well-nourished, pleasant, cooperative HEET: Normocephalic atraumatic, no scleral icterus, tongue midline, mucous membranes moist Neck: supple Cardiovascular: RRR, normal S1 and normal S2, no murmurs/ rubs/gallops, PMI nondisplaced, no JVD, no peripheral edema Respiratory: Good aeration, clear to auscultation bilaterally Abdomen: Soft, nontender, nondistended, + bowel sounds Neuro: Alert, no facial droop, tongue midline, no gross motor deficits Lab and Diagnostics Result Diagram: 05/24/17 03305/[id number]/17334 X-Rays, CTs and MRIs Echo 05/23/2017: 1) Upper normal left ventricular size with mild concentric hypertrophy and moderately reduced systolic function (EF 30-35%). 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 3) Normal right ventricular size and function. 4) No significant valvular abnormalities. 5) No prior Echo available for comparison. Assessment & Plan Assessment 52 yo M with no known medical history admitted with anterior STEMI. Patient underwent emergent coronary angiography that revealed occluded LAD but not a typical thrombotic event. The occlusion of the LAD was felt to be spasm related and no stents were placed. AMOL 1 flow present in the LAD at the end of the case. # Anterior [place]: Patient came in with acute anterior STEMI but emergent revascularization attempt was not successful. The cath pictures do not support atherosclerotic disease leading to [place]. Etiology is unclear to me at this time but it could be spasm versus dissection versus emboli. Unfortunately, patient also presented about 24 hours after having chest pain and poor flow in the distal LAD after revascularization attempt could be result of unviable myocardium. LVEF 30-35% with apical one third of the myocardium akinetic. Chest pain is improving but it does get worse with minimal exertion. Plan: - Autoimmune evaluation per primary team - Continue aspirin 81mg daily - Continue heparin gtt and transition to PO warfarin for 3 months of anticoagulation to reduce risk of systemic thromboembolism due to akinetic apex - Continue atorvastatin 40mg qhs to reduce possibility of endothelial dysfunction - Continue PO nitrates and uptitrate to maximal dose his BP allows - Starting lisinopril 2.5mg qhs - Start carvedilol 3.125mg bid tonight given patient having significant sinus tachycardia, especially with movement - Consider starting spironolactone 12.5mg daily tomorrow - Bed rest for the next 24 hours as we are watching for mechanical complications of acute anterior VT (ex. VSD). Ok to stretch and stand up with RN at bedside. Problems: Pain Evaluation: Adequate Pain Control GI Prophylaxis: Not indicated VTE Prophylaxis: Sub-Q Heparin (Unfractionated) VTE Mechanical Devices: Intermittant Pneumatic CD Resuscitation Status: CPR: Attempt Resuscitation Lakesha Merchant MD May 24, 2017 14:01
--- NOTE | 2017-05-24 15:24 | PCM.PNMED ---
Subjective Date of Service May 24, 2017 Subjective Nitroglycerin DC'd switched to oral today patient became hypotensive. Telemetry continues to show sinus tachycardia with some ST elevation in PVCs. Patient overall feels very well although is very concerned about what his functional status will be upon discharge. Cardiology continues to follow closely with medication management recommendations. Still complains of rib pain mostly on his left posterior side. Does not state that he has any specific chest pain or discomfort that feels cardiac in nature, while at rest though does state that with movement he will get dyspneic and would have some increase in his chest pain. Exam Vital Signs Vital Sign - Last Date Time Temp Pulse Resp B/P Pulse Ox O2 Delivery O2 Flow Rate FiO2 05/24/17 12:09 37.1 112 24 104/64 95 Nasal Cannula 2.00 Intake and Output 05/23/17 05/23/17 05/24/17 Cumulative From/Thru 15:00 23:00 07:00 05/22/17 20:53 - 05/24/17 06:11 Intake Total 1386 ml 1442 ml 3868 ml Output Total 3275 ml 2050 ml 6275 ml Balance -1889 ml -608 ml -2407 ml Intake Oral 1040 ml 1080 ml 2720 ml IV Total 346 ml 362 ml 1148 ml Output Urine Total 3275 ml 2050 ml 6275 ml # Bowel Movements 0 0 0 Exam General: Awake and alert laying in bed in no acute distress, well-developed, well-nourished, appropriately interactive. Sister present in the room during exam HEENT: Normocephalic, atraumatic. External ears without defect. Pupils equal, round, and reactive to light and accommodation. Anicteric sclerae, moist oral mucosa. Neck: Supple with full range of motion. No jugular venous distension. Scar on neck from prior surgery. Cardiovascular: Tachycardic rate, regular rhythm no murmurs appreciated. Pulmonary: Clear to auscultation bilaterally with no crackles. Normal respiratory effort with no use of accessory muscles. Abdomen: Soft, nontender, nondistended. . Extremities: No clubbing, cyanosis, edema. Skin: Warm to palpation, normal turgor, diaphoretic Neurological: Cranial nerves grossly intact. Psychiatric: Normal mood and affect. Alert and oriented to person, place, and time. IVs and Medications Medications Reviewed: Medications were reviewed in detail Lab and Diagnostics Result Diagram: 8/30/17 0335 05/24/17 0335 X-Rays, CTs and MRIs . X-RAY CHEST ONE VIEW, PORTABLE IMPRESSION: No acute cardiopulmonary findings. Dictated by: Nydia Kwong M.D. on 05/22/2017 X-RAY CHEST ONE VIEW, PORTABLE IMPRESSION: Trace left basilar opacity, possibly atelectasis. Dictated by: Carmelina Snyder M.D. on 05/23/2017 12-lead ECG Anterior infarct with Q waves throughout the precordium and persistent ST segment elevation Cardiac Echo Impressions . Echocardiogram Report Interpretation Summary 1) Upper normal left ventricular size with mild concentric hypertrophy and moderately reduced systolic function (EF 30-35%). 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 3) Normal right ventricular size and function. 4) No significant valvular abnormalities. 5) No prior Echo available for comparison. Electronically signed by: Lakesha Hess Mayur Assessment & Plan Romeo Timmons is a 52-year-old man with past medical history significant for 35- pack-year smoking history and a father with first MO at age 30 who presents with 24 hours of chest pain. STEMI thought to be secondary to spasm and myocardial bridging of the LAD, present on admission, active. - Cardiology following patient, recommendations and treatment direction greatly appreciated - EKG consistent with an anterior infarct with Q-waves throughout the precordium and persistent ST-segment elevation. - Status post emergent coronary angiography revealing occluded LAD most likely secondary to spasm, no revascularization - Lipid panel normal, current every day smoker 1.5 packs per day - Start carvedilol 3.125 mg twice a day - Nitroglycerin drip transition to PO, we will continue with by mouth nitrates - Continue heparin drip - Continue Aspirin QD, Clopidogril 75mg QD, Lisinopril 2.5mg QD, Atorvastatin 40 mg QD - ECHO as above - Continue with bed rest secondary to concern for complications of acute anterior MO (ruptured ventricular septum secondary to necrosis of myelocytes) - Consider starting spironolactone tomorrow - Supplemental oxygen as needed. - Immunological labs pending - Continue to monitor Leukocytosis, present on admission, improving -Most likely secondary to stress reaction -Continues to trend down Tobacco use disorder, present on admission, chronic. - Counseled on smoking cessation. - Declined nicotine patch. Asthma, present on admission, chronic. - Patient uses rescue inhaler once a week at most. - Albuterol ordered when necessary. Elevated Liver Function Test, present on admission -Denies EtOH use, Lipid panel normal, Possibly lab error -AST trending down -Continue to monitor Hyperglycemia, present on admission. Ongoing -A1c 5.7 PRN Medications - Acetaminophen as needed for mild pain/fever/headache - Bowel regimen as needed - Antiemetic as needed Patient is admitted under inpatient status with expected length of stay greater than 2 midnights due to severity of presenting symptoms, risk of adverse event, and complexity of treatment plan. GI Prophylaxis: Not indicated VTE Prophylaxis: Sub-Q Heparin (Unfractionated) VTE Mechanical Devices: Intermittant Pneumatic CD Resuscitation Status: CPR: Attempt Resuscitation Attending Statement The patient was seen and examined together with Dr. Dixon on May 24 and I agree with the history, exam findings, and plan as outlined in the note above. I did participate in all aspects of the services provided today, including documentation and the plan of care. Patient is continuing to complete an anterior infarct related to an LAD lesion. This was not amenable to PCI. The patient did present in delayed fashion. He does have evidence of acute systolic dysfunction with an LVEF of 30-35%. He however does remain compensated. We will continue his beta blockade and antiplatelet regimen. There is no evidence of fluid overload at this point. ABRAHAM DIXON DO May 24, 2017 13:19 Benedicto De La Paz MD May 26, 2017 08:32
--- NOTE | 2017-05-24 20:17 | NUR ---
VITALS/GROIN SITE Pt's BP 103/66, HR 110, on RA @ 95%, no c/o CP on assessment, groin site non tender, shows no signs of hematoma.
[2017-05-25] VITALS (11 sets, daily range): BP systolic 96–117; BP diastolic 57–78; PULSE 88–108; RESP 14–18; O2SAT 93–100
[2017-05-25 02:53] LABS: BASOPHILS % (AUTO) 0.2 % (0-3); EOSINOPHILS % (AUTO) 1.3 % (0-5); Mean Corpuscular Hemoglobin 32.2 pg (27.0-35.0); Mean Corpuscular Volume 92.9 fL (81-100); NEUTROPHILS % (AUTO) 70.9 % (40-74); Platelet Count 255 bil/L (150-400)
[2017-05-25 03:07] LABS: INR 0.94 ratio
[2017-05-25 03:26] LABS: Magnesium 1.7 mg/dL (1.6-2.6)
[2017-05-25 03:29] LABS: TROPONIN T 1.34 ug/L (0.0-0.011)
--- NOTE | 2017-05-25 11:22 | PCM.PNCARD ---
Subjective Date of service May 25, 2017 Chief Complaint Chest pain History of Present Illness 52 yo M with no known medical history admitted with anterior STEMI. Patient underwent emergent coronary angiography that revealed occluded LAD but not a typical thrombotic event. The occlusion of the LAD was felt to be spasm related and no stents were placed. AMOL 1 flow present in the LAD at the end of the case. Subjective: Patient feels much better with furosemide 20 mg by mouth times one yesterday. Denies chest pain, shortness of breath, lightheadedness, or syncope. Exam Vital Signs Vital Sign - Last Date Time Temp Pulse Resp B/P Pulse Ox O2 Delivery O2 Flow Rate FiO2 05/25/17 09:17 36.9 102 16 102/65 93 Room Air 05/24/17 14:30 2.00 Intake and Output 05/24/17 05/24/17 05/25/17 Cumulative From/Thru 15:00 23:00 07:00 05/22/17 20:53 - 05/25/17 06:33 Intake Total 1333 ml 956 ml 6157 ml Output Total 1350 ml 1000 ml 8625 ml Balance -17 ml -44 ml -2468 ml Intake Oral 1000 ml 600 ml 4320 ml IV Total 333 ml 356 ml 1837 ml Output Urine Total 1350 ml 1000 ml 8625 ml # Bowel Movements 0 0 General appearance: No apparent distress, well-nourished, pleasant, cooperative HEET: Normocephalic atraumatic, no scleral icterus, tongue midline, mucous membranes moist Neck: supple Cardiovascular: RRR, normal S1 and normal S2, no murmurs/ rubs/gallops, PMI nondisplaced, no JVD, no peripheral edema Respiratory: Good aeration, clear to auscultation bilaterally Abdomen: Soft, nontender, nondistended, + bowel sounds Neuro: Alert, no facial droop, tongue midline, no gross motor deficits Lab and Diagnostics Labs SHERIDAN negative. C-ANCA, PR3, p-ANCA, and atypical p-ANCA antibodies still pending Result Diagram: 05/25/1721905/25/17219 X-Rays, CTs and MRIs Echo 05/23/2017: 1) Upper normal left ventricular size with mild concentric hypertrophy and moderately reduced systolic function (EF 30-35%). 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 3) Normal right ventricular size and function. 4) No significant valvular abnormalities. 5) No prior Echo available for comparison. Assessment & Plan Assessment 52 yo M with no known medical history admitted with anterior STEMI. Patient underwent emergent coronary angiography that revealed occluded LAD but not a typical thrombotic event. The occlusion of the LAD was felt to be spasm related and no stents were placed. AMOL 1 flow present in the LAD at the end of the case. # Anterior WI: Patient came in with acute anterior STEMI but emergent revascularization attempt was not successful. The cath pictures do not support atherosclerotic disease leading to WI. Etiology is unclear to me at this time but it could be spasm versus dissection versus emboli. Unfortunately, patient also presented about 24 hours after having chest pain and poor flow in the distal LAD after revascularization attempt could be result of unviable myocardium. LVEF 30-35% with apical one third of the myocardium akinetic. Symptoms have resolved. Plan: - Autoimmune evaluation per primary team. SHERIDAN negative. C-ANCA, PR3, p-ANCA, and atypical p-ANCA antibodies still pending - Continue aspirin 81mg daily - Continue heparin gtt and transition to PO warfarin for 3 months of anticoagulation to reduce risk of systemic thromboembolism due to akinetic apex. Goal INR 2-2.5 - Continue atorvastatin 40mg qhs to reduce possibility of endothelial dysfunction - Continue PO nitrates and uptitrate to maximal dose his BP allows - Continue lisinopril 2.5mg qhs - Uptitrate carvedilol from 3.125mg bid to 6.25mg bid. Ok to decrease dose if hypotension occurs - Start spironolactone 12.5mg daily tomorrow - Ok to ambulate with RN nearby - Patient should resume work after 1 month because his work involves significant weight lifting and heavy duty work Patient should follow-up with cardiology as outpatient in [place] within 2-3 weeks. Cardiology will sign off at this time. Problems: Pain Evaluation: Adequate Pain Control GI Prophylaxis: Not indicated VTE Prophylaxis: Sub-Q Heparin (Unfractionated) VTE Mechanical Devices: Intermittant Pneumatic CD Resuscitation Status: CPR: Attempt Resuscitation Lakesha Merchant MD May 25, 2017 11:22
--- NOTE | 2017-05-25 13:54 | NUR ---
Activity Pt up and walking around in room and hallway with no c/o pain and steady gait with IV pole. PT does have and increase in HR and will be ST low 100's with activity but also sometimes at rest. First couple times pt walked with staff and checked groin after with no changes and after that pt can be independent. Will continue to monitor.
--- NOTE | 2017-05-25 13:57 | PCM.PNMED ---
Subjective Date of Service May 25, 2017 Subjective Patient is doing well today. No chest pain, or dyspnea other rest or with movement. He has been walking small distances. Normal bowel movement. No rectal bleeding. He is on a heparin drip. No nausea. No difficulty with urination including dysuria or hematuria. No overnight events. Exam Vital Signs Vital Sign - Last Date Time Temp Pulse Resp B/P Pulse Ox O2 Delivery O2 Flow Rate FiO2 05/25/17 12:39 37.0 97 14 96/65 100 Room Air 05/24/17 14:30 2.00 Intake and Output 05/24/17 05/24/17 05/25/17 Cumulative From/Thru 15:00 23:00 07:00 05/22/17 20:53 - 05/25/17 06:33 Intake Total 1333 ml 956 ml 6157 ml Output Total 1350 ml 1000 ml 8625 ml Balance -17 ml -44 ml -2468 ml Intake Oral 1000 ml 600 ml 4320 ml IV Total 333 ml 356 ml 1837 ml Output Urine Total 1350 ml 1000 ml 8625 ml # Bowel Movements 0 0 Exam Alert and oriented -3, no distress. Fluent speech Anicteric sclera. Lungs are clear with normal rate and effort Heart is regular without murmur gallop or rub Abdomen soft nontender, flat Extremities are free of edema. Skin is free of rash or lesions. IVs and Medications Medications Reviewed: Medications were reviewed in detail Lab and Diagnostics Result Diagram: 05/25/1721905/25/17219 X-Rays, CTs and MRIs . X-RAY CHEST ONE VIEW, PORTABLE IMPRESSION: No acute cardiopulmonary findings. Dictated by: Nydia Kwong M.D. on 05/22/2017 X-RAY CHEST ONE VIEW, PORTABLE IMPRESSION: Trace left basilar opacity, possibly atelectasis. Dictated by: Carmelina Snyder M.D. on 05/23/2017 12-lead ECG Anterior infarct with Q waves throughout the precordium and persistent ST segment elevation Cardiac Echo Impressions . Echocardiogram Report Interpretation Summary 1) Upper normal left ventricular size with mild concentric hypertrophy and moderately reduced systolic function (EF 30-35%). 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 3) Normal right ventricular size and function. 4) No significant valvular abnormalities. 5) No prior Echo available for comparison. Electronically signed by: Lakesha Waynemar Assessment & Plan Romeo Timmons is a 52-year-old man with past medical history significant for 35- pack-year smoking history and a father with first NE at age 30 who presents with 24 hours of chest pain. Anterior STEMI in the distribution of LAD, present on admission, active and improving.. - Cardiology following patient, recommendations and treatment direction greatly appreciated - EKG consistent with an anterior infarct with Q-waves throughout the precordium and persistent ST-segment elevation. 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 - Immunological labs pending - Continue to monitor The patient does have ongoing stability without evidence of arrhythmia or heart failure. We will continue his current medications including a heparin bridge to warfarin which is being loaded. Acute systolic heart failure, POA and compensated. The patient has no evidence of heart failure. This is presumably related to the acute anterior infarct. We will continue to titrate cardioprotective medications and follow clinically. Leukocytosis, present on admission, improving -Most likely secondary to stress reaction -Continues to trend down Follow clinically Tobacco use disorder, present on admission, chronic. - Counseled on smoking cessation. - Declined nicotine patch. Asthma, present on admission, chronic and stable. - Patient uses rescue inhaler once a week at most. - Albuterol ordered when necessary. Elevated Liver Function Test, present on admission -Denies EtOH use, Lipid panel normal, Possibly lab error -AST trending down -Continue to monitor Hyperglycemia, present on admission. Ongoing and stable -A1c 5.7 PRN Medications - Acetaminophen as needed for mild pain/fever/headache - Bowel regimen as needed - Antiemetic as needed Patient is admitted under inpatient status with expected length of stay greater than 2 midnights due to severity of presenting symptoms, risk of adverse event, and complexity of treatment plan. Discharge over the next 1-2 days pending therapeutic INR and ongoing cardiac stability with regards to arrhythmia or heart failure. GI Prophylaxis: Not indicated VTE Prophylaxis: Sub-Q Heparin (Unfractionated) VTE Mechanical Devices: Intermittant Pneumatic CD Resuscitation Status: CPR: Attempt Resuscitation Benedicto De La Paz MD May 25, 2017 13:57
[2017-05-25] MEDS: Heparin 25K Unit/500mL 0.45 NS 25,000 UNIT in IV Premix 1 EACH IV SCH (15:38)
[2017-05-25] MEDS: Heparin 5,000 Unit/mL Inj IVPUSH PRN (21:03)
--- NOTE | 2017-05-25 23:25 | NUR ---
Woke up Confused: Pt woke up confused; pulled off telemetry and pulled out PIV. Pt oriented at this time now. Telemetry placed back on pt and new PIV started and heparin gtt resumed at 1825 units/hour. Will cont. to closely monitor.
[2017-05-26] MEDS: Heparin 5,000 Unit/mL Inj IVPUSH PRN (03:50)
[2017-05-26 04:09] LABS: INR 1.01 ratio
[2017-05-26 04:11] VITALS: BP 99/64; PULSE 85; RESP 16; O2SAT 95
[2017-05-26 04:24] VITALS: PULSE 87
[2017-05-26 05:56] VITALS: PULSE 93
[2017-05-26] MEDS: Heparin 25K Unit/500mL 0.45 NS 25,000 UNIT in IV Premix 1 EACH IV SCH (06:00)
[2017-05-26 08:00] VITALS: PULSE 82
[2017-05-26 08:09] VITALS: BP 105/71; PULSE 85; O2SAT 96
[2017-05-26 12:15] VITALS: BP 97/59; PULSE 88; RESP 16; O2SAT 94
--- NOTE | 2017-05-26 13:33 | PCM.PHAPRO ---
Progress Chest pain Warfarin: Day 4 Indication: Pulsatile systolic LAD occlusion with risk of thrombus Date May 24-May 25-Apr 25-May 2-May 3-May 4-May INR 1.05 .99 .94 1.01 INR change -0.06 -0.05 0.07 Warf Dose 5mg 10mg 10MG 10mg o/ INR flat after 3 doses. a/ Anticipate INR ramp tomorrow p/ Continue with 10mg and follow Anibal Evans S Pharm D May 26, 2017 13:33
--- NOTE | 2017-05-26 13:59 | PCM.DIMED ---
Discharge Instructions Date of Service May 26, 2017 Dates of Hospitalization May 22, 2017 at 20:53 Discharge Diagnosis Discharge Diagnosis Anterior STEMI, improved. Acute systolic heart failure, stable. Tobacco use disorder, stable Asthma, stable. Elevated Liver Function Test, stable. Hyperglycemia, stable Diet Discharge Diet: Heart Healthy Activity Discharge Activity: Limited until seen by PCP Call your provider Call your provider for: Shortness of breath, Chest pain Patient Instructions Patient Instructions Follow-up with cardiology in 2 weeks. Follow-up with cardiac rehabilitation as scheduled. You will need a pro-time 1 year follow-up with us or see resident clinic Follow-up Provider: [facility] Follow-up with PCP in: 1 week Benedicto De La Paz MD May 26, 2017 13:59
[2017-05-26] MEDS ORDERED: NITR0.4T SL (14:03)
[2017-05-26] MEDS ORDERED: LISI-571 PO (14:03)
[2017-05-26] MEDS ORDERED: LOV80 SUBQ (14:03)
[2017-05-26] MEDS ORDERED: SPIR25TA PO (14:03)
[2017-05-26] MEDS ORDERED: ISOS20TA7 PO (14:03)
[2017-05-26] MEDS ORDERED: CARV6.252 PO (14:03)
[2017-05-26] MEDS ORDERED: CLOP75TA28 PO (14:03)
[2017-05-26] MEDS ORDERED: ASPI81TA3 PO (14:03)
[2017-05-26] MEDS ORDERED: WARF3TAB7 PO (14:03)
[2017-05-26] MEDS ORDERED: ATOR40TA69 PO (14:03)
--- NOTE | 2017-05-26 16:05 | NUR ---
Discharge Pt discharged at 1530. He was given discharge instructions and instructions for follow up care. He confirmed understanding of these instructions. He was given medication education on new prescriptions including education on how to self administer lovenox injections. Pt denied any questions. Two appointments were made for him for follow up care. He was given hard copies of prescriptions to take with him. His sister was present at the bedside. He was walked to the exit by hospital staff where his sister would be driving him home.
--- NOTE | 2017-05-26 17:54 | NUR ---
Social Work Note: Discharge Data& Assessment: EMR reviewed. Per MD in multidisciplinary rounds, pt is medically ready to discharge home via POV. Romeo Timmons is a 52 year old male admitted on 05/22/2017 for STEMI. Per pt is medically ready to discharge. LEHR CUTTER met with pt and pt sister at bedside to confirm discharge plan and assess for any unmet needs. Pt is ambulating the halls. Pt sister providing transportation. Pt and pt sister deny any other needs. No other discharge needs identified. All updated and agreeable to plan. Plan: Per pt is medically ready to discharge home via POV. Pt and pt sister deny any other needs. No other discharge needs identified. All updated and agreeable to plan. JOSE Garza
--- NOTE | 2017-05-26 18:45 | PCM.DC.MED ---
Discharge Summary Date of Service May 26, 2017 Dates of Hospitalization Date of Hospital Admission May 22, 2017 at 20:53 Date of Discharge: May 26, 2017 Providers: Admitting Physician: Paresh Us MD Primary Care Physician: Brandy Attending Physician: Benedicto Alva MD Diagnosis at Time of Discharge Diagnosis at Time of Discharge Anterior STEMI, improved. Acute systolic heart failure, stable. Tobacco use disorder, stable Asthma, stable. Elevated Liver Function Test, stable. Hyperglycemia, stable Consultations Cardiology, Dr. Merchant Interventional cardiology, Dr. Robertson Procedures XRay, CTs & MRIs . X-RAY CHEST ONE VIEW, PORTABLE IMPRESSION: No acute cardiopulmonary findings. Dictated by: Nydia Kwong M.D. on 05/22/2017 X-RAY CHEST ONE VIEW, PORTABLE IMPRESSION: Trace left basilar opacity, possibly atelectasis. Dictated by: Carmelina Snyder M.D. on 05/23/2017 ECG 12 Lead Anterior infarct with Q waves throughout the precordium and persistent ST segment elevation Cardiac Echo Impression . Echocardiogram Report Interpretation Summary 1) Upper normal left ventricular size with mild concentric hypertrophy and moderately reduced systolic function (EF 30-35%). 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 3) Normal right ventricular size and function. 4) No significant valvular abnormalities. 5) No prior Echo available for comparison. Electronically signed by: Lakesha Merchant Invasive Procedures INTERVENTIONAL CARDIAC CATHETERIZATION PATIENT: PAULINO SPARKS I : 1965 MR#: [id number] ADMIT: 05/22/2017 JOB ID: [id number] DATE: PROCEDURE: 1. Selective right and left coronary angiography. 2. Left heart catheterization. 3. Left ventriculography. 4. Plain old balloon angioplasty of the left anterior descending. INDICATION: Acute anterior [place]. PROCEDURAL DETAILS: This patient had the procedure performed via a right femoral approach using a 6-Khmer system. Further details are enumerated in the procedure log to which the reader and the coders are referred. ANGIOGRAPHIC FINDINGS: 1. Right coronary artery is a dominant vessel. It is free of any disease. 2. Left main normal with no significant disease. 3. Circumflex nondominant and free of any significant disease. 4. LAD is proximally a large caliber vessel. It is a transapical vessel. Totally occluded in its mid segment at the takeoff of a small septal branch. 5. Left heart catheterization revealed a severely depressed ejection fraction. A large area of apical, anterior, anterolateral hypokinesis. No significant MR. No gradient upon pullback. LVEDP was elevated at 24 mmHg. INTERVENTIONAL REPORT: We then proceeded ahead with an intervention on the totally occluded LAD. A Runthrough wire was readily able to cross this occlusion. We then ballooned it with a 2.0 balloon. 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 Following that, there was slow flow. We then did some further ballooning with a 2.0 balloon distally and a 2.5 balloon proximally. Following that, we were able to establish AMOL-2 flow into the distal LAD. No obvious culprit lesion was seen in the distal LAD. Also mentioned that the distal LAD tapers down into a very small caliber vessel. My impression at this point was that the infarct the patient suffered could be a result of severe spasm rather than fixed epicardial coronary artery disease. His coronaries have no significant disease in other segments, and spasm is a possibility. At this point, following balloon angioplasty, the procedure was terminated partly because the LAD was an extremely small caliber vessel distally, partly because I felt it was a result of spasm and also because the patient had a large wall motion abnormality on his left ventriculogram and given his delayed presentation I was not sure we could salvage much myocardium. At this point, the patient has been started on a nitroglycerin drip. It will be continued through the night. I would recommend withholding the patient's beta-blockers and starting him on nitrates. He might be an appropriate candidate for long-term treatment with hydralazine and nitrates. Abel Monaco MD 05/23/17 1030 Report status: Draft Transcribed by: ERICA 05/23/17 1101 REPORT#: [id number] Brief History 52 yo M with no known medical history admitted with anterior STEMI. Patient underwent emergent coronary angiography that revealed occluded LAD but not a typical thrombotic event. The occlusion of the LAD was felt to be spasm related and no stents were placed. AMOL 1 flow present in the LAD at the end of the case. Hospital Course Paulino Sparks is a 52-year-old man with past medical history significant for 35- pack-year smoking history and a father with first [place] at age 30 who presents with 24 hours of chest pain. Anterior STEMI in the distribution of LAD, present on admission, active and improving.. - Cardiology following patient, recommendations and treatment direction greatly appreciated - EKG consistent with an anterior infarct with Q-waves throughout the precordium and persistent ST-segment elevation. - Status post emergent coronary angiography revealing occluded LAD most likely secondary to spasm, no revascularization - Lipid panel normal, current every day smoker 1.5 packs per day - Start carvedilol 3.125 mg twice a day - Nitroglycerin drip transition to PO, we will continue with by mouth nitrates - Continue heparin drip - Continue Aspirin QD, Clopidogril 75mg QD, Lisinopril 2.5mg QD, Atorvastatin 40 mg QD The patient presented with evidence of a completing anterior infarct. Coronary angiogram indicated a completely occluded mid LAD lesion with evidence of anterior wall infarct. The patient was treated with medical therapy. He had no problems with heart failure or arrhythmia. No problems with pain control. Acute systolic heart failure, POA and compensated. His echo indicated ventricular dysfunction. The patient was placed on appropriate medical therapy and had no evidence of decompensation. Tobacco use disorder, present on admission, chronic. - Counseled on smoking cessation. - Declined nicotine patch. The patient leaves with the intention of complete abstinence from tobacco. Asthma, present on admission, chronic and stable. - Patient uses rescue inhaler once a week at most. - Albuterol ordered when necessary. His present no other problems on the hospital. Elevated Liver Function Test, present on admission -Denies EtOH use, Lipid panel normal, Possibly lab error -AST trending down -Continue to monitor, this may relate to a congestive hepatopathy. Hyperglycemia, present on admission. Ongoing and stable -A1c 5.7 The patient was felt to be medically stable for discharge on May 26. He will follow up with [facility] residency clinic as well as cardiac rehabilitation. He will also see Dr. Alcantar in the next 2 weeks. He will be on bridging Lovenox until his Coumadin is given for additional 5 days. He will need a pro time and his follow-up appointment. Exam Vital Signs (Last) Date Time Temp Pulse Resp B/P Pulse Ox O2 Delivery O2 Flow Rate FiO2 05/26/17 12:15 36.9 88 16 97/59 94 Room Air 05/24/17 14:30 2.00 Exam Patient was seen and examined on the day of discharge Test 05/22/17 22:55 05/23/17 03:10 05/23/17 07:45 05/23/17 13:35 Hemoglobin A1c 5.7% (4.8-5.6) Thyroid Stimulating Hormone (TSH) 2.050uIU/mL (0.450-4.500) Triglycerides Level 90mg/dL (0-149) Cholesterol Level 141mg/dL (100-199) LDL Cholesterol, Calculated 84.000mg/dL (0-99) VLDL Cholesterol 18.000mg/dL HDL Cholesterol 39mg/dL (>39) Cholesterol/HDL Ratio 3.62 (0.0-4.4) Total Creatine Kinase 968U/L (21-232) Creatine Kinase MB 34.6ng/mL (0.0-10.4) Creatine Kinase MB % 3.6% (0.0-5.0) C-Reactive Protein 17.4mg/dL (0.0-0.5) Anti-Nuclear Antibody Screen Negative (Negative) Test 05/24/17 03:35 05/25/17 02:20 05/26/17 02:50 05/26/17 09:45 Erythrocyte Sedimentation Rate 43mm/hr (0-30) White Blood Count 11.6th/mm3 (3.8-10.1) Red Blood Count 4.38mil/mm3 (4.40-5.80) Hemoglobin 14.1g/dL (13.8-17.2) Hematocrit 40.7% (41.0-50.0) Mean Corpuscular Volume 92.9fL (81-100) Mean Corpuscular Hemoglobin 32.2pg (27.0-35.0) Mean Corpuscular Hemoglobin Concent 34.6% (32.0-37.0) Red Cell Distribution Width 12.9% (12.3-15.4) Platelet Count 255bil/L (150-400) Neutrophils (%) (Auto) 70.9% (40-74) Lymphocytes (%) (Auto) 16.3% (14-46) Monocytes (%) (Auto) 11.0% (4-12) Eosinophils (%) (Auto) 1.3% (0-5) Basophils (%) (Auto) 0.2% (0-3) Sodium Level 135mEq/L (134-144) Potassium Level 4.1mEq/L (3.5-5.2) Chloride Level 101mEq/L (97-108) Carbon Dioxide Level 18mmol/L (18-29) Blood Urea Nitrogen 13mg/dL (6-24) Creatinine 0.72mg/dL (0.76-1.27) Estimat Glomerular Filtration Rate 122mL/min (>59) Glucose Level 118mg/dL (60-99) Calcium Level 8.8mg/dL (8.5-10.1) Magnesium Level 1.7mg/dL (1.6-2.6) Total Bilirubin 0.4mg/dL (0.0-1.2) Aspartate Amino Transf (AST/SGOT) 45U/L (0-50) Alanine Aminotransferase (ALT/SGPT) 31U/L (0-44) Alkaline Phosphatase 84U/L (25-150) Troponin T 1.34ug/L (0.0-0.011) Total Protein 7.2g/dL (6.4-8.4) Albumin 3.4g/dL (3.4-5.0) Lipase 13U/L (13-60) Prothrombin Time 10.8sec (8.1-12.5) Prothromb Time International Ratio 1.01ratio Activated Partial Thromboplast Time 54.7sec (22.8-33.0) Discharge Medications Discharge Medications Albuterol Sulfate (Ventolin HFA Inhaler) 200 Puff/18 Gm Inhaler 1-2 PUFFS INH Q4 -6Hrs (Reported) Aspirin Chew (Aspirin Chew) 81 Mg Chew 81 MG PO DAILY Prescribed by: BENEDICTO ALVA MD Atorvastatin Calcium (Atorvastatin Calcium) 40 Mg Tablet 40 MG PO HS Prescribed by: BENEDICTO ALVA MD Carvedilol (Carvedilol) 6.25 Mg Tablet 6.25 MG PO BID Prescribed by: BENEDICTO ALVA MD Clopidogrel (Clopidogrel) 75 Mg Tablet 75 MG PO DAILY Prescribed by: BENEDICTO ALVA MD Enoxaparin (Lovenox) 80 Mg/0.8 Ml Syringe 80 MG SUBQ Q12 Prescribed by: BENEDICTO ALVA MD Isosorbide DN (Isosorbide DN) 20 Mg Tablet 30 MG PO TID Prescribed by: BENEDICTO ALVA MD Lisinopril (Lisinopril) 5 Mg Tablet 2.5 MG PO HS Prescribed by: BENEDICTO ALVA MD Spironolactone (Aldactone) 25 Mg Tablet 12.5 MG PO DAILY Prescribed by: BENEDICTO ALVA MD Warfarin Sodium (Warfarin Sodium) 3 Mg Tablet 3 MG PO DAILY Prescribed by: BENEDICTO ALVA MD As needed Nitroglycerin SL (Nitrostat) 0.4 Mg Tab.subl 0.4 MG SL Q5MIN PRN PRN For Chest Pain IF SBP > 90 Prescribed by: BENEDICTO ALVA MD Followup Plan Disposition: Home with sister Discharge Diet: Heart Healthy Discharge Activity: Limited until seen by PCP Patient Instructions Follow-up with cardiology in 2 weeks. Follow-up with cardiac rehabilitation as scheduled. You will need a pro-time 1 year follow-up with us or see resident clinic Follow-up Provider: [facility] Res[facility] Follow-up with PCP in: 1 week Time spent 45 minutes Benedicto Alva MD May 26, 2017 18:45
[2017-05-31 12:08] LABS: Antiproteinase 3 (PR-3) Abs <3.5 U/mL (0.0-3.5); Perinuclear (P-ANCA) <1:20 titer (Neg:<1:20)
== END 2017-05-26 15:30 | disposition home or self-care (01) | DRG 250 ==
LOC: EDBD 20:41 → SED 20:41 → CCU 20:53 → PCC 05-24 09:45
PROVIDERS: ADMIT Hospitalist; ATTEND Hospitalist
PROC: 02703ZZ Dilation of Coronary Artery, One Artery, Percutaneous Approach (ICD-10-PCS; principal; 2017-05-22)
PROC: 4A023N7 Measurement of Cardiac Sampling and Pressure, Left Heart, Percutaneous Approach (ICD-10-PCS; 2017-05-22)
PROC: B2111ZZ Fluoroscopy of Multiple Coronary Arteries using Low Osmolar Contrast (ICD-10-PCS; 2017-05-22)
DX: I21.09 ST elevation (STEMI) myocardial infarction involving other coronary artery of anterior wall (principal); I50.21 Acute systolic (congestive) heart failure; Q24.5 Malformation of coronary vessels; I20.1 Angina pectoris with documented spasm; J45.909 Unspecified asthma, uncomplicated; F17.210 Nicotine dependence, cigarettes, uncomplicated; D72.829 Elevated white blood cell count, unspecified; R74.8 Abnormal levels of other serum enzymes; R73.9 Hyperglycemia, unspecified; Z86.79 Personal history of other diseases of the circulatory system